=== PATIENT | male | born 1965 ===

== ENCOUNTER 2016-02-28 16:31 | Inpatient (IN) | payer OTHER ==
[2016-02-28 17:33] VITALS: BMI 31.2
--- NOTE | 2016-02-28 18:38 | HP ---
CIWA Score - CIWA Score Nausea/Vomitin Muscle Tremors: 4-Moderate,w/Arms Extend Anxiety: 4-Mod. Anxious/Guarded Agitation: 4-Moderately Restless Paroxysmal Sweats: 3 Orientation: 0-Oriented Tacttile Disturbances: 0-None Auditory Disturbances: 0-None Visual Disturbances: 0-None Headache: 0-None Present CIWA-Ar Total Score: 17 Admission ROS BHS - HPI Chief Complaint: WITHDRAWAL SX. Allergies/Adverse Reactions: Allergies Allergy/AdvReac Type Severity Reaction Status Date / Time Penicillins Allergy Severe Rash Verified 02/28/16 18:06 History of Present Illness: 50 Y/O MAN WITH A LONG HX. OF DRUG & ALCOHOL DEPENDENCE IS ADMITTED FOR DETOX.PT. HAS BEEN IN PREVIOUS DETOX, DENIES SIGNIFICANT SOBRIETY. Exam Limitations: No Limitations - Ebola screening Have you traveled outside of the country in the last 21 days: No (N) Have you had contact with anyone from an Ebola affected area: No Have you been sick,other than usual withdrawal symptoms: No Do you have a fever: No - Review of Systems Constitutional: Diaphoresis EENT: reports: No Symptoms Reported Respiratory: reports: Shortness of Breath (ASTHMA), Wheezing (OFF & ON BECAUSE OF ASTHMA) Cardiac: reports: No Symptoms Reported GI: reports: No Symptoms Reported, Nausea, Abdominal cramping : reports: Frequency Musculoskeletal: reports: No Symptoms Reported Integumentary: reports: Sweating Neuro: reports: Tremors Endocrine: reports: No Symptoms Reported Hematology: reports: No Symptoms Reported Psychiatric: reports: No Sypmtoms Reported Other Systems: Reviewed and Negative Patient History - Patient Medical History Hx Anemia: No Hx Asthma: Yes (ALBUTEROL) Hx Chronic Obstructive Pulmonary Disease (COPD): No Hx Cancer: No Hx Cardiac Disorders: No Hx Congestive Heart Failure: No Hx Hypertension: Yes (LISINOPRIL) Hx Hypercholesterolemia: Yes (LIPITOR 10MG) Hx Pacemaker: No HX Cerebrovascular Accident: Yes ( IN 2014?, NO SEQUELA) Hx Seizures: No Hx Dementia: No Hx Diabetes: Yes Hx Gastrointestinal Disorders: No Hx Liver Disease: No Hx Genitourinary Disorders: No Hx Sexually Transmitted Disorders: Yes Hx Renal Disease (ESRD): No Hx Thyroid Disease: No Hx Human Immunodeficiency Virus (HIV): No Hx Hepatitis C: No Hx Depression: No Hx Suicide Attempt: No Hx Bipolar Disorder: Yes (SCHIZO-AFFECTIVE) Hx Schizophrenia: No - Patient Surgical History Past Surgical History: No Hx Neurologic Surgery: No Hx Cataract Extraction: No Hx Cardiac Surgery: No Hx Lung Surgery: No Hx Breast Surgery: No Hx Breast Biopsy: No Hx Abdominal Surgery: No Hx Appendectomy: No Hx Cholecystectomy: No Hx Genitourinary Surgery: No Hx Section: No Hx Orthopedic Surgery: No Anesthesia Reaction: No - PPD History Previous Implant?: Yes Documented Results: Positive w/o proof PPD to be Administered?: No - Smoking Cessation Smoking history: Current every day smoker Have you smoked in the past 12 months: Yes Aproximately how many cigarettes per day: 20 Hx Chewing Tobacco Use: Yes Initiated information on smoking cessation: Yes 'Breaking Loose' booklet given: 02/28/16 - Substance & Tx. History Hx Alcohol Use: Yes Hx Substance Use: Yes Substance Use Type: Alcohol, Cocaine Hx Substance Use Treatment: Yes (DETOX & REHAB) - Substances Abused Alcohol Route: Oral Frequency: Daily Amount used: RUM 3 pint Age of first use: 12 Date of Last Use: 02/28/16 Cocaine Route: Smoking Frequency: Daily Amount used: 20 bags Age of first use: 9 Date of Last Use: 02/27/16 Family Disease History - Family Disease History Family Disease History: Diabetes: Father (HTN,ALCOHOL), Mother (HTN,ALCOHOL), Heart Disease: Father, Mother Admission Physical Exam S - Vital Signs Vital Signs: Vital Signs - 24 hr 02/28/16 17:30 Temperature 95.6 F L Pulse Rate 75 Respiratory 18 Rate Blood Pressure 115/66 - Physical General Appearance: Yes: Tremorous, Sweating, Anxious HEENTM: Yes: Within Normal Limits Respiratory: Yes: Chest Non-Tender, Lungs Clear, Normal Breath Sounds Neck: Yes: Supple Breast: Yes: Breast Exam Deferred Cardiology: Yes: Regular Rhythm, Regular Rate, S1, S2 Abdominal: Yes: Normal Bowel Sounds, Non Tender, Soft Genitourinary: Yes: Within Normal Limits Back: Yes: Within Normal Limits Musculoskeletal: Yes: Within Normal Limits Extremities: Yes: Tremors Neurological: Yes: Fully Oriented, Alert Integumentary: Yes: Diaphoresis Lymphatic: Yes: Within Normal Limits - Diagnostic (1) Alcohol dependence with uncomplicated withdrawal Current Visit: Yes Status: Acute (2) Cocaine dependence, uncomplicated Current Visit: Yes Status: Acute (3) Cannabis dependence, uncomplicated Current Visit: Yes Status: Acute Cleared for Admission [facility] - Detox or Rehab [facility] Level of Care: Medically Managed Detox Regimen/Protocol: Librium [facility] Breath Alcohol Content Breath Alcohol Content: 0 Urine Drug Screen - Results Drug Screen Negative: No Urine Drug Screen Results: THC-Marijuana, SANDIE-Cocaine
[2016-02-28] MEDS ORDERED: MAGNESIUM HYDROX 2400MG/30ML ORAL SUSPENSION 30 ML CUP PO PRN (18:52)
[2016-02-28] MEDS ORDERED: ACETAMINOPHEN 325 MG TABLET (FP) PO PRN (18:52)
[2016-02-28] MEDS ORDERED: P-EPHED 60MG/TRIPROLIDI 2.5MG TABLET PO PRN (18:52)
[2016-02-28] MEDS ORDERED: hydrOXYzine PAMOATE 50 MG CAPSULE (FP) PO PRN (18:52)
[2016-02-28] MEDS ORDERED: chlordiazePOXIDE HCL 25 MG CAPSULE PO ONE (18:52)
[2016-02-28] MEDS ORDERED: NICOTINE POLACRILEX 2 MG GUM BC PRN (18:52)
[2016-02-28] MEDS ORDERED: MENTHOL/PHENOL 1 EACH UD MM PRN (18:52)
[2016-02-28] MEDS ORDERED: MAG HYDROX/AL HYDROX/SIMETH 30 ML UNIT-DOSE CUP PO PRN (18:52)
[2016-02-28] MEDS ORDERED: guaiFENesin/D-METHORPHAN HB 10 ML UNIT-DOSE CUPS PO PRN (18:52)
[2016-02-28] MEDS ORDERED: IBUPROFEN 400 MG TABLET (FP) PO PRN (18:52)
[2016-02-28] MEDS ORDERED: MAGNESIUM CITRATE 300 ML BOTTLE PO PRN (18:52)
[2016-02-28] MEDS ORDERED: LOPERAMIDE HCL 2 MG CAPSULE PO PRN (18:52)
[2016-02-28] MEDS ORDERED: diphenhydrAMINE HCL 50 MG CAPSULE PO PRN (18:52)
[2016-02-28] MEDS ORDERED: chlordiazePOXIDE HCL 25 MG CAPSULE PO PRN (18:52)
[2016-02-28] MEDS: NICOTINE 21 MG/24 HOURS TOPICAL PATCH TD SCH (20:35)
[2016-02-28] MEDS: THIAMINE HCL 100 MG TABLET (FP) PO SCH (22:34)
[2016-02-28] MEDS: chlordiazePOXIDE HCL 25 MG CAPSULE PO SCH (22:34)
[2016-02-29] MEDS: metFORMIN HCL 500 MG TABLET (FP) PO SCH ×2 (05:00→06:28)
[2016-02-29] MEDS: chlordiazePOXIDE HCL 25 MG CAPSULE PO SCH ×4 (05:53→22:31)
[2016-02-29] MEDS: INSULIN SLIDING SCALE (NOVOLOG) 1 VIAL SQ SCH ×2 (06:28→17:41)
[2016-02-29] MEDS: sitaGLIPtin PHOSPHATE 50 MG TABLET PO SCH (06:29)
[2016-02-29] MEDS: glipiZIDE 10 MG TABLET (FP) PO SCH (08:01)
[2016-02-29 09:47] LABS: MCH 30.4 pg (25.7-33.7); MCHC 33.1 g/dl (32.0-35.9); MEAN CELL VOLUME 91.6 fl (80-96); MEAN PLT VOLUME 9.9 fl (7.5-11.1); PLATELET COUNT 173 K/MM3 (134-434); RDW 14.3 % (11.9-15.9); WHITE BLOOD COUNT 6.2 K/mm3 (4.0-10.0)
[2016-02-29 09:59] LABS: ALBUMIN 4.1 g/dl (3.4-5.0); ANION GAP 10 (8-16); CALCIUM 8.8 mg/dL (8.5-10.1); CO2 23 mmol/L (21-32); CREATININE 1.1 mg/dL (0.7-1.3); GLUCOSE,RANDOM 175 mg/dL (74-106); SGOT/AST 34 U/L (15-37); SGPT/ALT 38 U/L (12-78)
[2016-02-29 10:01] LABS: ALK PHOS 138 U/L (45-117); BILIRUBIN,TOTAL 0.6 mg/dL (0.2-1.0); TOT PROT 7.4 g/dl (6.4-8.2)
[2016-02-29] MEDS: PRENATAL VITAMINS W/ FOLIC ACID TABLET (FP) PO SCH (10:54)
[2016-02-29] MEDS: ASPIRIN 81 MG CHEWABLE TABLETS PO SCH (10:54)
[2016-02-29] MEDS: LISINOPRIL 10 MG TABLET (FP) PO SCH (10:55)
[2016-02-29] MEDS: NICOTINE 21 MG/24 HOURS TOPICAL PATCH TD SCH (10:55)
[2016-02-29] MEDS ORDERED: chlordiazePOXIDE HCL 25 MG CAPSULE PO ONE (11:45)
--- NOTE | 2016-02-29 14:07 | PN ---
S CIWA - CIWA Score Nausea/Vomitin Muscle Tremors: 3 Anxiety: 1-Mildly Anxious Agitation: 2 Paroxysmal Sweats: 3 Orientation: 0-Oriented Tacttile Disturbances: 2-Mild Itch/Numbness/Burn Auditory Disturbances: 0-None Visual Disturbances: 1-Very Mild Sensitivity Headache: 0-None Present CIWA-Ar Total Score: 14 BHS Progress Note (SOAP) Subjective: Tremors, Interrupted Sleep, Sweating, Body Aches. Objective: 02/29/16 14:05 Vital Signs Temperature 97.1 F L 02/29/16 13:17 Pulse Rate 71 02/29/16 13:17 Respiratory Rate 18 02/29/16 13:17 Blood Pressure 112/71 02/29/16 13:17 O2 Sat by Pulse Oximetry (%) Laboratory Last Values WBC 6.2 K/mm3 (4.0-10.0) 02/29/16 07:30 RBC 3.71 M/mm3 (4.00-5.60) L 02/29/16 07:30 Hgb 11.3 GM/dL (11.7-16.9) L 02/29/16 07:30 Hct 34.0 % (35.4-49) L 02/29/16 07:30 MCV 91.6 fl (80-96) 02/29/16 07:30 MCHC 33.1 g/dl (32.0-35.9) 02/29/16 07:30 RDW 14.3 % (11.9-15.9) 02/29/16 07:30 Plt Count 173 K/MM3 (134-434) 02/29/16 07:30 MPV 9.9 fl (7.5-11.1) 02/29/16 07:30 Sodium 141 mmol/L (136-145) 02/29/16 07:20 Potassium 4.1 mmol/L (3.5-5.1) 02/29/16 07:20 Chloride 108 mmol/L (98-107) H 02/29/16 07:20 Carbon Dioxide 23 mmol/L (21-32) 02/29/16 07:20 Anion Gap 10 (8-16) 02/29/16 07:20 BUN 17 mg/dL (7-18) 02/29/16 07:20 Creatinine 1.1 mg/dL (0.7-1.3) 02/29/16 07:20 Creat Clearance w eGFR > 60 (>60) 02/29/16 07:20 POC Glucometer 161 UNITS (()) 02/29/16 05:55 Random Glucose 175 mg/dL (74-106) H 02/29/16 07:20 Calcium 8.8 mg/dL (8.5-10.1) 02/29/16 07:20 Total Bilirubin 0.6 mg/dL (0.2-1.0) 02/29/16 07:20 AST 34 U/L (15-37) 02/29/16 07:20 ALT 38 U/L (12-78) 02/29/16 07:20 Alkaline Phosphatase 138 U/L (45-117) H 02/29/16 07:20 Total Protein 7.4 g/dl (6.4-8.2) 02/29/16 07:20 Albumin 4.1 g/dl (3.4-5.0) 02/29/16 07:20 LABS NOTED. Assessment: 02/29/16 14:06 WITHDRAWAL SYMPTOMS. Plan: CONTINUE DETOX.
[2016-02-29] MEDS: THIAMINE HCL 100 MG TABLET (FP) PO SCH (22:31)
[2016-02-29 22:58] LABS: URINE APPEARANCE SLCLOUDY; URINE BILIRUBIN NEGATIVE (NEGATIVE); URINE BLOOD NEGATIVE (NEGATIVE); URINE COLOR YELLOW; URINE GLUCOSE (UA) NEGATIVE (NEGATIVE); URINE KETONE NEGATIVE (NEGATIVE); URINE LEUK ESTERASE NEGATIVE (NEGATIVE); URINE NITRITE NEGATIVE (NEGATIVE); URINE UROBILINOGEN NEGATIVE E.U./dl (0.2-1.0)
[2016-02-29 23:02] LABS: URINE PROTEIN 1+ (NEGATIVE)
[2016-02-29 23:06] LABS: URINE MUCUS FEW; URINE RBC 1 /hpf (0-3); URINE WBC 4 /hpf (3-5)
[2016-03-01] MEDS: chlordiazePOXIDE HCL 25 MG CAPSULE PO SCH ×3 (05:58→18:06)
[2016-03-01] MEDS: INSULIN SLIDING SCALE (NOVOLOG) 1 VIAL SQ SCH ×2 (06:01→17:05)
[2016-03-01] MEDS: sitaGLIPtin PHOSPHATE 50 MG TABLET PO SCH (06:01)
[2016-03-01] MEDS: metFORMIN HCL 500 MG TABLET (FP) PO SCH ×2 (06:01→18:06)
[2016-03-01] MEDS: glipiZIDE 10 MG TABLET (FP) PO SCH (06:01)
[2016-03-01] MEDS: NICOTINE 21 MG/24 HOURS TOPICAL PATCH TD SCH (10:18)
[2016-03-01] MEDS: PRENATAL VITAMINS W/ FOLIC ACID TABLET (FP) PO SCH (10:18)
[2016-03-01] MEDS: LISINOPRIL 10 MG TABLET (FP) PO SCH (10:18)
[2016-03-01] MEDS: ASPIRIN 81 MG CHEWABLE TABLETS PO SCH (10:18)
--- NOTE | 2016-03-01 13:19 | PN ---
S CIWA - CIWA Score Nausea/Vomitin-No Nausea/No Vomiting Muscle Tremors: 2 Anxiety: 4-Mod. Anxious/Guarded Agitation: 3 Paroxysmal Sweats: 3 Orientation: 0-Oriented Tacttile Disturbances: 1-Very Mild Itch/Numbness Auditory Disturbances: 0-None Visual Disturbances: 0-None Headache: 0-None Present CIWA-Ar Total Score: 13 BHS Progress Note (SOAP) Subjective: ANXIETY,TREMORS,SWEATING,INTERRUPTED SLEEP,RESTLESS Objective: 03/01/16 13:20 Vital Signs - 8 hr 03/01/16 03/01/16 06:14 10:26 Temperature 98.0 F 97.0 F L Pulse Rate 62 68 Respiratory 16 18 Rate Blood Pressure 111/77 110/64 Laboratory Tests 02/29/16 02/29/16 02/29/16 05:55 07:20 07:20 WBC RBC Hgb Hct MCV MCHC RDW Plt Count MPV Sodium 141 Potassium 4.1 Chloride 108 H Carbon Dioxide 23 Anion Gap 10 BUN 17 Creatinine 1.1 Creat Clearance w eGFR > 60 POC Glucometer 161 Random Glucose 175 H Calcium 8.8 Total Bilirubin 0.6 AST 34 ALT 38 Alkaline Phosphatase 138 H Total Protein 7.4 Albumin 4.1 Urine Color Urine Appearance Urine pH Ur Specific [place] Urine Protein Urine Glucose (UA) Urine Ketones Urine Blood Urine Nitrite Urine Bilirubin Urine Urobilinogen Ur Leukocyte Esterase Urine RBC Urine WBC Ur Epithelial Cells Urine Mucus RPR Titer Nonreactive 02/29/16 02/29/16 02/29/16 07:30 16:11 22:45 WBC 6.2 RBC 3.71 L Hgb 11.3 L Hct 34.0 L MCV 91.6 MCHC 33.1 RDW 14.3 Plt Count 173 MPV 9.9 Sodium Potassium Chloride Carbon Dioxide Anion Gap BUN Creatinine Creat Clearance w eGFR POC Glucometer 147 Random Glucose Calcium Total Bilirubin AST ALT Alkaline Phosphatase Total Protein Albumin Urine Color Yellow Urine Appearance Slcloudy Urine pH 5.0 Ur Specific [place] 1.034 Urine Protein 1+ H Urine Glucose (UA) Negative Urine Ketones Negative Urine Blood Negative Urine Nitrite Negative Urine Bilirubin Negative Urine Urobilinogen Negative Ur Leukocyte Esterase Negative Urine RBC 1 Urine WBC 4 Ur Epithelial Cells Rare Urine Mucus Few RPR Titer 03/01/16 05:57 WBC RBC Hgb Hct MCV MCHC RDW Plt Count MPV Sodium Potassium Chloride Carbon Dioxide Anion Gap BUN Creatinine Creat Clearance w eGFR POC Glucometer 151 Random Glucose Calcium Total Bilirubin AST ALT Alkaline Phosphatase Total Protein Albumin Urine Color Urine Appearance Urine pH Ur Specific [place] Urine Protein Urine Glucose (UA) Urine Ketones Urine Blood Urine Nitrite Urine Bilirubin Urine Urobilinogen Ur Leukocyte Esterase Urine RBC Urine WBC Ur Epithelial Cells Urine Mucus RPR Titer LABS NOTED Assessment: 03/01/16 13:20 WITHDRAWAL SX. Plan: CONTINUE DETOX
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
[2016-03-01] MEDS: chlordiazePOXIDE 5 MG CAPSULE PO SCH (22:33)
[2016-03-01] MEDS: THIAMINE HCL 100 MG TABLET (FP) PO SCH (22:33)
[2016-03-01] MEDS: QUEtiapine FUMARATE 100 MG TABLET (FP) PO SCH (22:34)
[2016-03-02] MEDS: chlordiazePOXIDE 5 MG CAPSULE PO SCH ×3 (05:37→17:27)
[2016-03-02] MEDS: glipiZIDE 10 MG TABLET (FP) PO SCH (06:04)
[2016-03-02] MEDS: sitaGLIPtin PHOSPHATE 50 MG TABLET PO SCH (06:04)
[2016-03-02] MEDS: metFORMIN HCL 500 MG TABLET (FP) PO SCH ×2 (06:05→16:53)
[2016-03-02] MEDS: INSULIN SLIDING SCALE (NOVOLOG) 1 VIAL SQ SCH ×2 (06:05→16:50)
[2016-03-02] MEDS: PRENATAL VITAMINS W/ FOLIC ACID TABLET (FP) PO SCH (10:06)
[2016-03-02] MEDS: NICOTINE 21 MG/24 HOURS TOPICAL PATCH TD SCH (10:07)
[2016-03-02] MEDS: ASPIRIN 81 MG CHEWABLE TABLETS PO SCH (10:07)
[2016-03-02] MEDS: LISINOPRIL 10 MG TABLET (FP) PO SCH (10:07)
--- NOTE | 2016-03-02 10:28 | PN ---
S Progress Note (SOAP) Subjective: ALERT,IRRITABLE,ANXIOUS,INTERRUPTED SLEEP Objective: 03/02/16 10:27 Vital Signs Temperature 98.3 F 03/02/16 06:39 Pulse Rate 75 03/02/16 06:39 Respiratory Rate 18 03/02/16 06:39 Blood Pressure 111/63 03/02/16 06:39 O2 Sat by Pulse Oximetry (%) Assessment: 03/02/16 10:27 WITHDRAWAL SYMPTOM Plan: CONTINUE DETOX,DISCHARGE IN AM
[2016-03-02] MEDS: THIAMINE HCL 100 MG TABLET (FP) PO SCH (22:32)
[2016-03-02] MEDS: chlordiazePOXIDE HCL 10 MG CAPSULE PO SCH (22:32)
[2016-03-02] MEDS: QUEtiapine FUMARATE 100 MG TABLET (FP) PO SCH (22:32)
[2016-03-03] MEDS: sitaGLIPtin PHOSPHATE 50 MG TABLET PO SCH (06:26)
[2016-03-03] MEDS: glipiZIDE 10 MG TABLET (FP) PO SCH (06:26)
[2016-03-03] MEDS: chlordiazePOXIDE HCL 10 MG CAPSULE PO SCH ×2 (06:26→10:18)
[2016-03-03] MEDS: metFORMIN HCL 500 MG TABLET (FP) PO SCH (06:26)
[2016-03-03 06:42] VITALS: BP 132/88; PULSE 73; TEMP 96.9
[2016-03-03] MEDS: INSULIN SLIDING SCALE (NOVOLOG) 1 VIAL SQ SCH (07:30)
--- NOTE | 2016-03-03 08:23 | PN ---
S Progress Note (SOAP) Subjective: ALERT,NO COMPLAINT Objective: 03/03/16 08:19 ALERT,NO COMPLAINT 03/03/16 08:20 Vital Signs Temperature 96.9 F L 03/03/16 06:41 Pulse Rate 73 03/03/16 06:41 Respiratory Rate 18 03/03/16 06:41 Blood Pressure 132/88 03/03/16 06:41 O2 Sat by Pulse Oximetry (%) Assessment: 03/03/16 08:20 DETOX COMPLETED,NO WITHDRAWAL SYMPTOM Plan: DISCHARGE TODAY,FOLLOW UP WITH AFTER CARE PROGRAM ARRANGEMENT
--- NOTE | 2016-03-03 08:27 | DS ---
[facility] Detox Discharge Summary Admission Date: 02/28/16 Discharge Date: 03/03/16 - History Present History: Alcohol Dependence, Cannabis Dependence, Cocaine Dependence Additional Comments: FOLLOW UP WITH AFTER CARE PROGRAM ARRANGEMENT AND PMD FOR MEDICAL PROBLEM Pertinent Past History: NICOTINE DEPENDENCE - Physical Exam Results Vital Signs: Vital Signs Temperature 96.9 F L 03/03/16 06:41 Pulse Rate 73 03/03/16 06:41 Respiratory Rate 18 03/03/16 06:41 Blood Pressure 132/88 03/03/16 06:41 O2 Sat by Pulse Oximetry (%) Pertinent Admission Physical Exam Findings: WITHDRAWAL SYMPTOM - Treatment Hospital Course: Detox Protocol Followed, Detoxed Safely, Responded well, Discharged Condition Good Patient has Accepted a Rehab Referral to: [facility] - Medication Discharge Medications: Ambulatory Orders Aspirin [ASA -] 81 mg PO DAILY 02/28/16 Glipizide [Glucotrol -] 10 mg PO DAILY 02/28/16 Lisinopril [Prinivil] 10 mg PO DAILY 02/28/16 Sitagliptin Phos/Metformin HCl [Janumet 50-500 mg Tablet] 1 each PO DAILY - AMA Did Patient Leave Against Medical Advice: No
[2016-03-03] MEDS: PRENATAL VITAMINS W/ FOLIC ACID TABLET (FP) PO SCH (10:18)
[2016-03-03] MEDS: LISINOPRIL 10 MG TABLET (FP) PO SCH (10:18)
[2016-03-03] MEDS: NICOTINE 21 MG/24 HOURS TOPICAL PATCH TD SCH (10:18)
[2016-03-03] MEDS: ASPIRIN 81 MG CHEWABLE TABLETS PO SCH (10:18)
== END 2016-03-03 12:28 | disposition other institution (70) | DRG 774 ==
LOC: YASAS 16:31 → Y3N 17:37
PROVIDERS: ADMIT Internal Medicine; ATTEND Internal Medicine
PROC: HZ2ZZZZ Detoxification Services for Substance Abuse Treatment (ICD-10-PCS; principal; 2016-02-28)
DX: F10.230 Alcohol dependence with withdrawal, uncomplicated (principal); F14.20 Cocaine dependence, uncomplicated; F12.20 Cannabis dependence, uncomplicated; F17.210 Nicotine dependence, cigarettes, uncomplicated; F19.24 Other psychoactive substance dependence with psychoactive substance-induced mood disorder; E78.5 Hyperlipidemia, unspecified; E11.9 Type 2 diabetes mellitus without complications; I10 Essential (primary) hypertension; J45.909 Unspecified asthma, uncomplicated; Z86.73 Personal history of transient ischemic attack (TIA), and cerebral infarction without residual deficits; Z87.438 Personal history of other diseases of male genital organs
CPT/HCPCS: 36415; 71020-TC; 80053; 81003; 81015; 85027; 86593; 93005; 93010

== ENCOUNTER 2016-03-03 12:44 | Inpatient (IN) | payer OTHER ==
[2016-03-03] MEDS ORDERED: guaiFENesin/D-METHORPHAN HB 10 ML UNIT-DOSE CUPS PO PRN (13:06)
[2016-03-03] MEDS ORDERED: P-EPHED 60MG/TRIPROLIDI 2.5MG TABLET PO PRN (13:06)
[2016-03-03] MEDS ORDERED: NICOTINE POLACRILEX 4 MG GUM BUC PRN (13:06)
[2016-03-03] MEDS ORDERED: MENTHOL/PHENOL 1 EACH UD MM PRN (13:06)
[2016-03-03] MEDS ORDERED: MAG HYDROX/AL HYDROX/SIMETH 30 ML UNIT-DOSE CUP PO PRN (13:06)
[2016-03-03] MEDS ORDERED: MAGNESIUM CITRATE 300 ML BOTTLE PO PRN (13:06)
[2016-03-03] MEDS ORDERED: ACETAMINOPHEN 325 MG TABLET (FP) PO PRN (13:06)
[2016-03-03] MEDS ORDERED: LOPERAMIDE HCL 2 MG CAPSULE PO PRN (13:06)
[2016-03-03] MEDS ORDERED: MAGNESIUM HYDROX 2400MG/30ML ORAL SUSPENSION 30 ML CUP PO PRN (13:06)
[2016-03-03 13:13] VITALS: BMI 33.3
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
[2016-03-03] MEDS ORDERED: sitaGLIPtin PHOSPHATE 50 MG TABLET PO SCH (16:30)
[2016-03-03] MEDS: metFORMIN HCL 500 MG TABLET (FP) PO SCH (16:39)
[2016-03-03] MEDS ORDERED: sitaGLIPtin PHOSPHATE 50 MG TABLET PO ONE (17:00)
--- NOTE | 2016-03-03 17:04 | HP ---
[facility] Rehab Assess/Revision - Admission History Admitted to Rehab from: [facility] Date of Admission to Rehab: 03/03/16 - Vital signs Vital Signs: Vital Signs Period Temp Pulse Resp BP Sys/Almazan Pulse Ox Last 24 Hr 97.6 F 71 20 126/74 - Findings Detox History & Physical reviewed: Yes Concur with findings: Yes Comments/Additional Findings: transferred from detox to rehab admission as per protocol
[2016-03-03] MEDS: THIAMINE HCL 100 MG TABLET (FP) PO SCH (21:17)
[2016-03-03] MEDS: QUEtiapine FUMARATE 100 MG TABLET (FP) PO SCH (21:17)
[2016-03-04] MEDS: metFORMIN HCL 500 MG TABLET (FP) PO SCH ×2 (06:30→16:47)
[2016-03-04] MEDS: sitaGLIPtin PHOSPHATE 50 MG TABLET PO SCH ×2 (06:31→16:48)
[2016-03-04] MEDS: PRENATAL VITAMINS W/ FOLIC ACID TABLET (FP) PO SCH (09:45)
[2016-03-04] MEDS: NICOTINE 21 MG/24 HOURS TOPICAL PATCH TD SCH (09:45)
[2016-03-04] MEDS: ASPIRIN 81 MG CHEWABLE TABLETS PO SCH (09:45)
[2016-03-04] MEDS: QUEtiapine FUMARATE 100 MG TABLET (FP) PO SCH (21:31)
[2016-03-04] MEDS: THIAMINE HCL 100 MG TABLET (FP) PO SCH (21:31)
[2016-03-05] MEDS: metFORMIN HCL 500 MG TABLET (FP) PO SCH ×2 (07:39→16:41)
[2016-03-05] MEDS: sitaGLIPtin PHOSPHATE 50 MG TABLET PO SCH ×2 (07:39→16:41)
[2016-03-05] MEDS: PRENATAL VITAMINS W/ FOLIC ACID TABLET (FP) PO SCH (09:50)
[2016-03-05] MEDS: ASPIRIN 81 MG CHEWABLE TABLETS PO SCH (09:50)
[2016-03-05] MEDS: NICOTINE 21 MG/24 HOURS TOPICAL PATCH TD SCH (09:50)
--- NOTE | 2016-03-05 12:43 | PN ---
[facility] Progress Note Note: quantiferon + 02/12 on inh and b6, order placed
[2016-03-05] MEDS: PYRIDOXINE HCL (B-6) 50 MG TABLET (FP) PO SCH (16:06)
[2016-03-05] MEDS: ISONIAZID 300 MG TABLET (FP) PO SCH (16:06)
[2016-03-05] MEDS: QUEtiapine FUMARATE 100 MG TABLET (FP) PO SCH (21:12)
[2016-03-05] MEDS: THIAMINE HCL 100 MG TABLET (FP) PO SCH (21:12)
[2016-03-06] MEDS: sitaGLIPtin PHOSPHATE 50 MG TABLET PO SCH ×2 (07:37→17:00)
[2016-03-06] MEDS: metFORMIN HCL 500 MG TABLET (FP) PO SCH ×2 (07:37→17:00)
[2016-03-06] MEDS: ASPIRIN 81 MG CHEWABLE TABLETS PO SCH (09:49)
[2016-03-06] MEDS: PRENATAL VITAMINS W/ FOLIC ACID TABLET (FP) PO SCH (09:49)
[2016-03-06] MEDS: PYRIDOXINE HCL (B-6) 50 MG TABLET (FP) PO SCH (09:49)
[2016-03-06] MEDS: ISONIAZID 300 MG TABLET (FP) PO SCH (09:49)
[2016-03-06] MEDS: NICOTINE 21 MG/24 HOURS TOPICAL PATCH TD SCH (09:50)
[2016-03-06] MEDS: QUEtiapine FUMARATE 100 MG TABLET (FP) PO SCH (21:50)
[2016-03-06] MEDS: THIAMINE HCL 100 MG TABLET (FP) PO SCH (21:50)
[2016-03-07] MEDS: sitaGLIPtin PHOSPHATE 50 MG TABLET PO SCH ×2 (07:27→16:51)
[2016-03-07] MEDS: metFORMIN HCL 500 MG TABLET (FP) PO SCH ×2 (07:27→16:50)
[2016-03-07] MEDS: ASPIRIN 81 MG CHEWABLE TABLETS PO SCH (10:00)
[2016-03-07] MEDS: NICOTINE 21 MG/24 HOURS TOPICAL PATCH TD SCH (10:00)
[2016-03-07] MEDS: ISONIAZID 300 MG TABLET (FP) PO SCH (10:00)
[2016-03-07] MEDS: PRENATAL VITAMINS W/ FOLIC ACID TABLET (FP) PO SCH (10:00)
[2016-03-07] MEDS: PYRIDOXINE HCL (B-6) 50 MG TABLET (FP) PO SCH (10:01)
[2016-03-07] MEDS: QUEtiapine FUMARATE 100 MG TABLET (FP) PO SCH (21:39)
[2016-03-07] MEDS: THIAMINE HCL 100 MG TABLET (FP) PO SCH (21:39)
[2016-03-08] MEDS: metFORMIN HCL 500 MG TABLET (FP) PO SCH ×2 (07:04→16:33)
[2016-03-08] MEDS: sitaGLIPtin PHOSPHATE 50 MG TABLET PO SCH ×2 (07:04→16:33)
[2016-03-08] MEDS: PYRIDOXINE HCL (B-6) 50 MG TABLET (FP) PO SCH (10:03)
[2016-03-08] MEDS: ASPIRIN 81 MG CHEWABLE TABLETS PO SCH (10:03)
[2016-03-08] MEDS: NICOTINE 21 MG/24 HOURS TOPICAL PATCH TD SCH (10:03)
[2016-03-08] MEDS: ISONIAZID 300 MG TABLET (FP) PO SCH (10:03)
[2016-03-08] MEDS: PRENATAL VITAMINS W/ FOLIC ACID TABLET (FP) PO SCH (10:03)
[2016-03-08] MEDS: QUEtiapine FUMARATE 100 MG TABLET (FP) PO SCH (21:32)
[2016-03-08] MEDS: THIAMINE HCL 100 MG TABLET (FP) PO SCH (21:32)
[2016-03-09] MEDS: sitaGLIPtin PHOSPHATE 50 MG TABLET PO SCH ×2 (07:18→16:36)
[2016-03-09] MEDS: metFORMIN HCL 500 MG TABLET (FP) PO SCH ×2 (07:18→16:37)
[2016-03-09] MEDS: NICOTINE 21 MG/24 HOURS TOPICAL PATCH TD SCH (09:33)
[2016-03-09] MEDS: ISONIAZID 300 MG TABLET (FP) PO SCH (09:33)
[2016-03-09] MEDS: PRENATAL VITAMINS W/ FOLIC ACID TABLET (FP) PO SCH (09:33)
[2016-03-09] MEDS: PYRIDOXINE HCL (B-6) 50 MG TABLET (FP) PO SCH (09:33)
[2016-03-09] MEDS: ASPIRIN 81 MG CHEWABLE TABLETS PO SCH (09:33)
[2016-03-09] MEDS: QUEtiapine FUMARATE 100 MG TABLET (FP) PO SCH (21:28)
[2016-03-09] MEDS: THIAMINE HCL 100 MG TABLET (FP) PO SCH (21:28)
[2016-03-10] MEDS: sitaGLIPtin PHOSPHATE 50 MG TABLET PO SCH ×2 (07:21→16:48)
[2016-03-10] MEDS: metFORMIN HCL 500 MG TABLET (FP) PO SCH ×2 (07:21→16:48)
[2016-03-10] MEDS: ISONIAZID 300 MG TABLET (FP) PO SCH (09:34)
[2016-03-10] MEDS: PYRIDOXINE HCL (B-6) 50 MG TABLET (FP) PO SCH (09:34)
[2016-03-10] MEDS: ASPIRIN 81 MG CHEWABLE TABLETS PO SCH (09:34)
[2016-03-10] MEDS: NICOTINE 21 MG/24 HOURS TOPICAL PATCH TD SCH (09:34)
[2016-03-10] MEDS: PRENATAL VITAMINS W/ FOLIC ACID TABLET (FP) PO SCH (09:34)
[2016-03-10] MEDS: THIAMINE HCL 100 MG TABLET (FP) PO SCH (21:40)
[2016-03-10] MEDS: QUEtiapine FUMARATE 100 MG TABLET (FP) PO SCH (21:40)
[2016-03-11] MEDS: sitaGLIPtin PHOSPHATE 50 MG TABLET PO SCH ×2 (07:22→17:04)
[2016-03-11] MEDS: metFORMIN HCL 500 MG TABLET (FP) PO SCH ×2 (07:22→17:04)
[2016-03-11] MEDS: NICOTINE 21 MG/24 HOURS TOPICAL PATCH TD SCH (09:44)
[2016-03-11] MEDS: PYRIDOXINE HCL (B-6) 50 MG TABLET (FP) PO SCH (09:44)
[2016-03-11] MEDS: ASPIRIN 81 MG CHEWABLE TABLETS PO SCH (09:44)
[2016-03-11] MEDS: PRENATAL VITAMINS W/ FOLIC ACID TABLET (FP) PO SCH (09:44)
[2016-03-11] MEDS: ISONIAZID 300 MG TABLET (FP) PO SCH (09:44)
[2016-03-11] MEDS: QUEtiapine FUMARATE 100 MG TABLET (FP) PO SCH (21:33)
[2016-03-11] MEDS: THIAMINE HCL 100 MG TABLET (FP) PO SCH (21:33)
[2016-03-12] MEDS: metFORMIN HCL 500 MG TABLET (FP) PO SCH ×2 (06:34→16:51)
[2016-03-12] MEDS: sitaGLIPtin PHOSPHATE 50 MG TABLET PO SCH ×2 (06:34→16:53)
[2016-03-12] MEDS: ASPIRIN 81 MG CHEWABLE TABLETS PO SCH (09:32)
[2016-03-12] MEDS: NICOTINE 21 MG/24 HOURS TOPICAL PATCH TD SCH (09:32)
[2016-03-12] MEDS: PRENATAL VITAMINS W/ FOLIC ACID TABLET (FP) PO SCH (09:32)
[2016-03-12] MEDS: ISONIAZID 300 MG TABLET (FP) PO SCH (09:32)
[2016-03-12] MEDS: PYRIDOXINE HCL (B-6) 50 MG TABLET (FP) PO SCH (10:50)
[2016-03-12] MEDS: QUEtiapine FUMARATE 100 MG TABLET (FP) PO SCH (21:43)
[2016-03-12] MEDS: THIAMINE HCL 100 MG TABLET (FP) PO SCH (21:43)
[2016-03-13] MEDS: metFORMIN HCL 500 MG TABLET (FP) PO SCH ×2 (07:15→16:49)
[2016-03-13] MEDS: sitaGLIPtin PHOSPHATE 50 MG TABLET PO SCH ×2 (07:16→16:49)
[2016-03-13] MEDS: NICOTINE 21 MG/24 HOURS TOPICAL PATCH TD SCH (10:04)
[2016-03-13] MEDS: ISONIAZID 300 MG TABLET (FP) PO SCH (10:04)
[2016-03-13] MEDS: ASPIRIN 81 MG CHEWABLE TABLETS PO SCH (10:04)
[2016-03-13] MEDS: PRENATAL VITAMINS W/ FOLIC ACID TABLET (FP) PO SCH (10:04)
[2016-03-13] MEDS: PYRIDOXINE HCL (B-6) 50 MG TABLET (FP) PO SCH (10:06)
[2016-03-13] MEDS: QUEtiapine FUMARATE 100 MG TABLET (FP) PO SCH (21:02)
[2016-03-13] MEDS: THIAMINE HCL 100 MG TABLET (FP) PO SCH (21:02)
[2016-03-14] MEDS: metFORMIN HCL 500 MG TABLET (FP) PO SCH ×2 (07:15→16:42)
[2016-03-14] MEDS: sitaGLIPtin PHOSPHATE 50 MG TABLET PO SCH ×2 (07:17→16:42)
[2016-03-14] MEDS: PYRIDOXINE HCL (B-6) 50 MG TABLET (FP) PO SCH (09:44)
[2016-03-14] MEDS: ASPIRIN 81 MG CHEWABLE TABLETS PO SCH (09:44)
[2016-03-14] MEDS: PRENATAL VITAMINS W/ FOLIC ACID TABLET (FP) PO SCH (09:45)
[2016-03-14] MEDS: NICOTINE 21 MG/24 HOURS TOPICAL PATCH TD SCH (09:45)
[2016-03-14] MEDS: ISONIAZID 300 MG TABLET (FP) PO SCH (09:45)
[2016-03-14] MEDS: QUEtiapine FUMARATE 100 MG TABLET (FP) PO SCH (21:04)
[2016-03-14] MEDS: THIAMINE HCL 100 MG TABLET (FP) PO SCH (21:04)
[2016-03-15] MEDS: sitaGLIPtin PHOSPHATE 50 MG TABLET PO SCH ×2 (06:19→16:45)
[2016-03-15] MEDS: metFORMIN HCL 500 MG TABLET (FP) PO SCH ×2 (06:19→16:45)
[2016-03-15] MEDS: PRENATAL VITAMINS W/ FOLIC ACID TABLET (FP) PO SCH (09:28)
[2016-03-15] MEDS: ISONIAZID 300 MG TABLET (FP) PO SCH (09:29)
[2016-03-15] MEDS: PYRIDOXINE HCL (B-6) 50 MG TABLET (FP) PO SCH (09:29)
[2016-03-15] MEDS: ASPIRIN 81 MG CHEWABLE TABLETS PO SCH (09:29)
[2016-03-15] MEDS: NICOTINE 21 MG/24 HOURS TOPICAL PATCH TD SCH (09:30)
[2016-03-15] MEDS: THIAMINE HCL 100 MG TABLET (FP) PO SCH (21:21)
[2016-03-15] MEDS: QUEtiapine FUMARATE 100 MG TABLET (FP) PO SCH (21:21)
[2016-03-16] MEDS: metFORMIN HCL 500 MG TABLET (FP) PO SCH ×2 (07:02→16:42)
[2016-03-16] MEDS: sitaGLIPtin PHOSPHATE 50 MG TABLET PO SCH ×2 (07:02→16:42)
[2016-03-16] MEDS: NICOTINE 21 MG/24 HOURS TOPICAL PATCH TD SCH (09:54)
[2016-03-16] MEDS: ASPIRIN 81 MG CHEWABLE TABLETS PO SCH (09:54)
[2016-03-16] MEDS: PYRIDOXINE HCL (B-6) 50 MG TABLET (FP) PO SCH (09:54)
[2016-03-16] MEDS: PRENATAL VITAMINS W/ FOLIC ACID TABLET (FP) PO SCH (09:54)
[2016-03-16] MEDS: ISONIAZID 300 MG TABLET (FP) PO SCH (09:54)
[2016-03-16] MEDS: IBUPROFEN 400 MG TABLET (FP) PO PRN (20:44)
[2016-03-16] MEDS: QUEtiapine FUMARATE 100 MG TABLET (FP) PO SCH (21:27)
[2016-03-16] MEDS: THIAMINE HCL 100 MG TABLET (FP) PO SCH (21:27)
[2016-03-17] MEDS: metFORMIN HCL 500 MG TABLET (FP) PO SCH ×2 (07:19→17:02)
[2016-03-17] MEDS: sitaGLIPtin PHOSPHATE 50 MG TABLET PO SCH ×2 (07:19→17:02)
[2016-03-17] MEDS: ISONIAZID 300 MG TABLET (FP) PO SCH (09:46)
[2016-03-17] MEDS: ASPIRIN 81 MG CHEWABLE TABLETS PO SCH (09:46)
[2016-03-17] MEDS: PRENATAL VITAMINS W/ FOLIC ACID TABLET (FP) PO SCH (09:46)
[2016-03-17] MEDS: PYRIDOXINE HCL (B-6) 50 MG TABLET (FP) PO SCH (09:46)
[2016-03-17] MEDS: NICOTINE 21 MG/24 HOURS TOPICAL PATCH TD SCH (09:47)
[2016-03-17] MEDS: THIAMINE HCL 100 MG TABLET (FP) PO SCH (21:23)
[2016-03-17] MEDS: QUEtiapine FUMARATE 100 MG TABLET (FP) PO SCH (21:23)
[2016-03-18] MEDS: metFORMIN HCL 500 MG TABLET (FP) PO SCH ×2 (06:37→16:58)
[2016-03-18] MEDS: sitaGLIPtin PHOSPHATE 50 MG TABLET PO SCH ×2 (06:37→16:58)
[2016-03-18] MEDS: ASPIRIN 81 MG CHEWABLE TABLETS PO SCH (09:48)
[2016-03-18] MEDS: NICOTINE 21 MG/24 HOURS TOPICAL PATCH TD SCH (09:48)
[2016-03-18] MEDS: PYRIDOXINE HCL (B-6) 50 MG TABLET (FP) PO SCH (09:48)
[2016-03-18] MEDS: PRENATAL VITAMINS W/ FOLIC ACID TABLET (FP) PO SCH (09:48)
[2016-03-18] MEDS: ISONIAZID 300 MG TABLET (FP) PO SCH (09:49)
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
[2016-03-18] MEDS ORDERED: hydrOXYzine PAMOATE 50 MG CAPSULE (FP) PO PRN (11:26)
[2016-03-18] MEDS: QUEtiapine FUMARATE 100 MG TABLET (FP) PO SCH (21:39)
[2016-03-18] MEDS: THIAMINE HCL 100 MG TABLET (FP) PO SCH (21:39)
[2016-03-19] MEDS: sitaGLIPtin PHOSPHATE 50 MG TABLET PO SCH ×2 (07:27→17:14)
[2016-03-19] MEDS: metFORMIN HCL 500 MG TABLET (FP) PO SCH ×2 (07:27→17:14)
[2016-03-19] MEDS: IBUPROFEN 400 MG TABLET (FP) PO PRN ×2 (09:07→15:48)
[2016-03-19] MEDS: PRENATAL VITAMINS W/ FOLIC ACID TABLET (FP) PO SCH (10:38)
[2016-03-19] MEDS: QUEtiapine FUMARATE 100 MG TABLET (FP) PO SCH ×2 (10:39→21:58)
[2016-03-19] MEDS: PYRIDOXINE HCL (B-6) 50 MG TABLET (FP) PO SCH (10:40)
[2016-03-19] MEDS: ASPIRIN 81 MG CHEWABLE TABLETS PO SCH (12:39)
[2016-03-19] MEDS: ISONIAZID 300 MG TABLET (FP) PO SCH (12:39)
[2016-03-19] MEDS: NICOTINE 21 MG/24 HOURS TOPICAL PATCH TD SCH (12:39)
[2016-03-19] MEDS: THIAMINE HCL 100 MG TABLET (FP) PO SCH (21:58)
[2016-03-19] MEDS: diphenhydrAMINE HCL 50 MG CAPSULE PO PRN (21:58)
[2016-03-20] MEDS: metFORMIN HCL 500 MG TABLET (FP) PO SCH ×2 (06:38→16:44)
[2016-03-20] MEDS: sitaGLIPtin PHOSPHATE 50 MG TABLET PO SCH ×2 (06:39→16:44)
[2016-03-20] MEDS: QUEtiapine FUMARATE 100 MG TABLET (FP) PO SCH ×2 (09:37→21:58)
[2016-03-20] MEDS: NICOTINE 21 MG/24 HOURS TOPICAL PATCH TD SCH (09:37)
[2016-03-20] MEDS: PRENATAL VITAMINS W/ FOLIC ACID TABLET (FP) PO SCH (09:37)
[2016-03-20] MEDS: ISONIAZID 300 MG TABLET (FP) PO SCH (09:37)
[2016-03-20] MEDS: PYRIDOXINE HCL (B-6) 50 MG TABLET (FP) PO SCH (09:37)
[2016-03-20] MEDS: ASPIRIN 81 MG CHEWABLE TABLETS PO SCH (09:37)
[2016-03-20] MEDS: diphenhydrAMINE HCL 50 MG CAPSULE PO PRN (21:58)
[2016-03-20] MEDS: THIAMINE HCL 100 MG TABLET (FP) PO SCH (21:58)
[2016-03-21] MEDS: metFORMIN HCL 500 MG TABLET (FP) PO SCH ×2 (07:22→16:49)
[2016-03-21] MEDS: sitaGLIPtin PHOSPHATE 50 MG TABLET PO SCH ×2 (07:22→16:49)
[2016-03-21] MEDS: PRENATAL VITAMINS W/ FOLIC ACID TABLET (FP) PO SCH (09:35)
[2016-03-21] MEDS: ISONIAZID 300 MG TABLET (FP) PO SCH (09:36)
[2016-03-21] MEDS: NICOTINE 21 MG/24 HOURS TOPICAL PATCH TD SCH (09:36)
[2016-03-21] MEDS: ASPIRIN 81 MG CHEWABLE TABLETS PO SCH (09:36)
[2016-03-21] MEDS: QUEtiapine FUMARATE 100 MG TABLET (FP) PO SCH ×2 (09:36→21:39)
[2016-03-21] MEDS: PYRIDOXINE HCL (B-6) 50 MG TABLET (FP) PO SCH (09:37)
[2016-03-21] MEDS: THIAMINE HCL 100 MG TABLET (FP) PO SCH (21:38)
[2016-03-21] MEDS: diphenhydrAMINE HCL 50 MG CAPSULE PO PRN (21:38)
[2016-03-22] MEDS: metFORMIN HCL 500 MG TABLET (FP) PO SCH ×2 (06:59→16:42)
[2016-03-22] MEDS: sitaGLIPtin PHOSPHATE 50 MG TABLET PO SCH ×2 (06:59→16:43)
[2016-03-22] MEDS ORDERED: QUEtiapine FUMARATE 50 MG TABLET ONE (08:29)
[2016-03-22] MEDS: NICOTINE 21 MG/24 HOURS TOPICAL PATCH TD SCH (09:50)
[2016-03-22] MEDS: ISONIAZID 300 MG TABLET (FP) PO SCH (09:51)
[2016-03-22] MEDS: ASPIRIN 81 MG CHEWABLE TABLETS PO SCH (09:51)
[2016-03-22] MEDS: PRENATAL VITAMINS W/ FOLIC ACID TABLET (FP) PO SCH (09:51)
[2016-03-22] MEDS: PYRIDOXINE HCL (B-6) 50 MG TABLET (FP) PO SCH (09:52)
[2016-03-22] MEDS: QUEtiapine FUMARATE 100 MG TABLET (FP) PO SCH ×2 (09:52→21:38)
[2016-03-22] MEDS: diphenhydrAMINE HCL 50 MG CAPSULE PO PRN (21:38)
[2016-03-22] MEDS: THIAMINE HCL 100 MG TABLET (FP) PO SCH (21:38)
[2016-03-23] MEDS: metFORMIN HCL 500 MG TABLET (FP) PO SCH ×2 (07:34→16:43)
[2016-03-23] MEDS: sitaGLIPtin PHOSPHATE 50 MG TABLET PO SCH ×2 (07:35→16:43)
[2016-03-23] MEDS: IBUPROFEN 400 MG TABLET (FP) PO PRN (08:25)
[2016-03-23] MEDS: QUEtiapine FUMARATE 100 MG TABLET (FP) PO SCH ×2 (09:39→21:10)
[2016-03-23] MEDS: ISONIAZID 300 MG TABLET (FP) PO SCH (09:39)
[2016-03-23] MEDS: ASPIRIN 81 MG CHEWABLE TABLETS PO SCH (09:39)
[2016-03-23] MEDS: PRENATAL VITAMINS W/ FOLIC ACID TABLET (FP) PO SCH (09:39)
[2016-03-23] MEDS: PYRIDOXINE HCL (B-6) 50 MG TABLET (FP) PO SCH (09:40)
[2016-03-23] MEDS: NICOTINE 21 MG/24 HOURS TOPICAL PATCH TD SCH (09:40)
[2016-03-23] MEDS ORDERED: IBUPROFEN 600 MG TABLET (FP) PO PRN (13:24)
[2016-03-23] MEDS ORDERED: LIDOCAINE 5% TOPICAL PATCH TP ONE (13:56)
--- NOTE | 2016-03-23 14:19 | PN ---
Psychiatric Progress Note Vital Signs: Vital Signs Period Temp Pulse Resp BP Sys/Almazan Pulse Ox Last 24 Hr 98.1 F 67 18-20 107/70 Date of Session: 03/23/16 Chief Complaint:: Psychiatrist Discharge Note HPI: Patient addressing Alcohol, Cocaine and Cannabis Dependnce comorbid with Nicotine Dependence, Schizoaffective Disorder and PTSD ROS: Asthma, HTN, type II DM Current Medications: Active Medications Generic Name Dose Route Start Last Admin Trade Name Freq PRN Reason Stop Dose Admin Acetaminophen 650 mg 03/03/16 13:06 Tylenol - PO Q4H PRN FEVER OR PAIN Al Hydroxide/Mg Hydroxide 30 ml 03/03/16 13:06 03/03/16 21:48 Mylanta Oral Suspension - PO 30 ml Q6H PRN Administration DYSPEPSIA Aspirin 81 mg 03/04/16 10:00 03/23/16 09:39 Asa - PO 81 mg DAILY LEANDRA Administration Diphenhydramine HCl 50 mg 03/03/16 13:06 03/22/16 21:38 Benadryl - PO 50 mg HSMR1 PRN Administration FOR ITCHING Eucalyptus/Menthol/Phenol/Sorbitol 1 each 03/03/16 13:06 Cepastat Lozenge - MM Q4H PRN SORE THROAT Guaifenesin 10 ml 03/03/16 13:06 Robitussin Dm - PO Q6H PRN COUGH Hydroxyzine Pamoate 50 mg 03/18/16 11:26 Vistaril - PO Q4H PRN ANXIETY Ibuprofen 600 mg 03/23/16 13:24 Motrin - PO Q6H PRN PAIN Isoniazid 300 mg 03/05/16 12:45 03/23/16 09:39 Inh - PO 300 mg DAILY LEANDRA Administration Lidocaine 1 patch 03/24/16 10:00 Lidoderm Patch - TP DAILY LEANDRA Loperamide HCl 4 mg 03/03/16 13:06 Imodium - PO Q6H PRN DIARRHEA Magnesium Hydroxide 30 ml 03/03/16 13:06 03/19/16 19:44 Milk Of Magnesia - PO 30 ml DAILY PRN Administration CONSTIPATION Metformin HCl 500 mg 03/03/16 16:30 03/23/16 07:34 Glucophage - PO 500 mg BID@0700,1630 LEANDRA Administration Nicotine 21 mg 03/04/16 10:00 03/23/16 09:40 Nicoderm Patch - TD 21 mg DAILY LEANDRA Administration Nicotine Polacrilex 4 mg 03/03/16 13:06 Nicorette Gum - BUC Q2H PRN NICOTINE REPLACEMENT RX Multivit/Folic Acid/Iron 1 tab 03/04/16 10:00 03/23/16 09:39 Vitamins (Sjr) - PO 1 tab DAILY LEANDRA Administration Pseudoephedrine/Triprolidine 1 combo 03/03/16 13:06 Actifed - PO TID PRN NASAL CONGESTION Pyridoxine HCl 50 mg 03/05/16 12:45 03/23/16 09:40 Vitamin B6 - PO 50 mg DAILY LEANDRA Administration Quetiapine Fumarate 100 mg 03/18/16 22:00 03/23/16 09:39 Seroquel - PO 100 mg BID LEANDRA Administration Sitagliptin Phosphate 50 mg 03/03/16 16:40 03/23/16 07:35 Januvia - PO 50 mg BID@0700,1630 LEANDRA Administration Thiamine HCl 100 mg 03/03/16 22:00 03/22/16 21:38 Vitamin B1 - PO 100 mg HS LEANDRA Administration Current Side Effect: No Lab tests ordered: Yes Lab tests reviewed: Yes Provider note:: Patient will complete this program on 03/24/16.He has met his treatment goals and will continue to address his issues in outpatient treatment at [facility] in [facility]. Told commercial underwriter that from his participation in this program, he has learn to recognize that anger in one of his triggers and he has to manage it better in order to maintain abstinent. He responded well to Seroquel 100 mg po BID. Script for 30 days supply of medication will be electronically transmitted to [facility] at [address] [place] [address]. He is stable for discharge on 03/24/16 Total face to face time:: 35 Psychiatric Treatment Plan - Problem List (1) Alcohol dependence with uncomplicated withdrawal Current Visit: No (2) Cocaine dependence, uncomplicated Current Visit: No (3) Cannabis dependence, uncomplicated Current Visit: No (4) Nicotine dependence Current Visit: No (5) Schizoaffective disorder Current Visit: No Comment: By history (self-report). (6) PTSD (post-traumatic stress disorder) Current Visit: Yes (7) Asthma Current Visit: Yes (8) HTN (hypertension) Current Visit: Yes (9) Type II diabetes mellitus Current Visit: Yes Initial treatment plan: Patient will be discharged tomorrow and referred back to [facility] for outpatient treatment
[2016-03-23] MEDS: THIAMINE HCL 100 MG TABLET (FP) PO SCH (21:10)
[2016-03-24 07:30] VITALS: BP 126/78; PULSE 71; TEMP 98.3
[2016-03-24] MEDS: metFORMIN HCL 500 MG TABLET (FP) PO SCH (07:41)
[2016-03-24] MEDS: sitaGLIPtin PHOSPHATE 50 MG TABLET PO SCH (07:41)
[2016-03-24] MEDS: QUEtiapine FUMARATE 100 MG TABLET (FP) PO SCH (09:38)
[2016-03-24] MEDS: ISONIAZID 300 MG TABLET (FP) PO SCH (09:38)
[2016-03-24] MEDS: PRENATAL VITAMINS W/ FOLIC ACID TABLET (FP) PO SCH (09:38)
[2016-03-24] MEDS: NICOTINE 21 MG/24 HOURS TOPICAL PATCH TD SCH (09:38)
[2016-03-24] MEDS: PYRIDOXINE HCL (B-6) 50 MG TABLET (FP) PO SCH (09:39)
[2016-03-24] MEDS: ASPIRIN 81 MG CHEWABLE TABLETS PO SCH (09:39)
[2016-03-24] MEDS ORDERED: LIDOCAINE 5% TOPICAL PATCH TP SCH (10:00)
== END 2016-03-24 09:55 | disposition home or self-care (01) | DRG 772 ==
LOC: YASAS 12:44 → Y3W 12:45
PROVIDERS: ADMIT Psychiatry & Neurology Psychiatry; ATTEND Psychiatry & Neurology Psychiatry
PROC: HZ42ZZZ Group Counseling for Substance Abuse Treatment, Cognitive-Behavioral (ICD-10-PCS; principal; 2016-03-03)
DX: F10.20 Alcohol dependence, uncomplicated (principal); F14.20 Cocaine dependence, uncomplicated; F12.20 Cannabis dependence, uncomplicated; F17.210 Nicotine dependence, cigarettes, uncomplicated; F25.9 Schizoaffective disorder, unspecified; F43.10 Post-traumatic stress disorder, unspecified; J45.909 Unspecified asthma, uncomplicated; I10 Essential (primary) hypertension; E11.9 Type 2 diabetes mellitus without complications